=== PATIENT | female | born 1995 | race African-American/Black ===

== ENCOUNTER 2017-07-09 15:26 | Emergency (ER) | payer MEDICAID ==
[~2017-07-09] VITALS: Ht 170.2 cm; Wt 83.0 kg
[2017-07-09 15:40] VITALS: BP 124/84
--- NOTE | 2017-07-09 16:30 | Emergency Room Report ---
History of Present Illness General Chief Complaint: Behavioral Complaint Source: Patient (GERONIMO RAZO) Present Illness HPI 21 y/o female BIB friend c/o intent to hurt herself x 2 days. States that she has a hx of cutting since she was 15 y/o with hx of abuse and recent methamphetamine use 2 days ago. States she does not want to talk about her issue but states she had gotten to an argument with her boyfriend and then started cutting on herself this morning but then 2 hours prior to arrival began cutting her lower wrist with a razor with the intent to kill herself. States that she called her friend who brought her here to the hospital for evaluation. Patient states she feels depressed and has little interest in doing things, insomnia, poor appetite, feels bad about herself / thinks she is a failure and has been restless and irritable. Patient admits to having both auditory and visual hallucinations. Denies homicidal ideations. (GERONIMO RAZO) Allergies: Coded Allergies: No Known Allergies (Unverified , 07/09/17) Patient History Past Medical History: see triage record Past Surgical History: none Pertinent Family History: none Last Menstrual Period: 05/08/17 Now: No Immunizations: UTD Reviewed Nursing Documentation: PMH: Agreed, PSxH: Agreed (GERONIMO RAZO) Nursing Documentation-PMH Past Medical History: No History, Except For Hx Cardiac Problems: No Hx Hypertension: No Hx Pacemaker: No Hx Asthma: No Hx COPD: No Hx Diabetes: No Hx Cancer: No Hx Gastrointestinal Problems: No Hx Dialysis: No History Of Psychiatric Problem: Yes - Anxiety, Depression, Schizophrenia Hx Neurological Problems: No Hx Cerebrovascular Accident: No Hx Seizures: Yes (GERONIMO RAZO) Review of Systems All Other Systems: negative except mentioned in HPI (GERONIMO RAZO) Physical Exam Vital Signs Date Time Temp Pulse Resp B/P (MAP) Pulse Ox O2 Delivery O2 Flow Rate FiO2 07/09/17 15:29 98.1 100 16 126/83 100 Room Air Sp02 EP Interpretation: reviewed, normal General Appearance: no apparent distress, alert, GCS 15, non-toxic Head: normocephalic, atraumatic Eyes: bilateral eye normal inspection, bilateral eye PERRL ENT: hearing grossly normal, normal pharynx, no angioedema, normal voice Neck: full range of motion, supple/symm/no masses Respiratory: chest non-tender, lungs clear, normal breath sounds, speaking full sentences Cardiovascular #1: regular rate, rhythm, no edema Musculoskeletal: gait/station normal, normal range of motion Neurologic: alert, oriented x3, responsive, motor strength/tone normal, sensory intact, speech normal Psychiatric: judgement/insight normal, memory normal, no delusions, depressed affect, other - PHQ - 19, Very Difficult to do work, take care of things at home or get along with people. Skin: normal color, no rash, warm/dry, well hydrated, laceration - multipe 3cm superficial lacerations on right forarm and wrist. keloids on left arm from old cutting wounds. Lymphatic: no adenopathy (GERONIMO RAZO) Medical Decision Making PA Attestation Dr. Mccarthy is my supervising physician with whom patient management has been discussed with. (GERONIMO RAZO) Diagnostic Impression: Primary Impression: Behavioral disorder Additional Impression: Substance abuse ER Course Pt. presents to the ED c/o "cutting" Ddx considered but are not limited to schizophrenia, drug abuse, depression, suicide attempt, borderline personality, bipolar, tumor, CVA, meningitis Vital signs: are WNL, pt. is afebrile H&PE are most consistent with Major depression with drug abuse ORDERS / ED INTERVENTIONS: My Orders - GERONIMO RAZO Procedure Category Date Status Time Vital Signs CARE 07/09/17 Transmitted 16:14 Iv Access / Saline CARE 07/09/17 Transmitted Lock 16:14 Acetaminophen Level LAB 07/09/17 Logged 16:14 Alcohol Blood/Serum LAB 07/09/17 Logged 16:14 Cbc W/ Differential LAB 07/09/17 Logged 16:14 CMP LAB 07/09/17 Logged 16:14 Drug Screen Urine LAB 07/09/17 Logged 16:14 Salicylates Level LAB 07/09/17 Logged 16:14 Thyroid Stimulating LAB 07/09/17 Logged Hormone 16:14 Urine Screen LAB 07/09/17 Logged 16:14 Saline 10ml Flush PHA 07/09/17 In Process (Saline 10ml Flush) 16:15 At this time pt. is stable and is medically clear. Patient is pending evaluation by psych. I have transferred care and given report to Dr. Mccarthy who has taken over care at the end of my shift. (GERONIMO RAZO) ER Course Please see the above reports. Patient history reviewed and patient examined. The patient is examined by me in the morning. She denies any pain. She also denies any medication at this time. We'll be reevaluating her to see if she needs to be placed at this time. [facility]. (Scooby Merida M.D.) Last Vital Signs Date Time Temp Pulse Resp B/P (MAP) Pulse Ox O2 Delivery O2 Flow Rate FiO2 07/09/17 18:40 98.2 99 12 117/74 98 Room Air Status: improved (GERONIMO RAZO) Last Vital Signs Date Time Temp Pulse Resp B/P (MAP) Pulse Ox O2 Delivery O2 Flow Rate FiO2 07/10/17 11:30 63 18 106/76 98 Room Air 07/10/17 11:30 97.4 Status: improved (Scooby Merida M.D.) Disposition: XFER SHT-TRM HOSP Condition: Serious - but stable for transfer Referrals: NOT CHOSEN IPA/,REFERRING (PCP) GERONIMO RAZO Jul 09, 2017 16:30 Scooby Merida M.D. Jul 10, 2017 07:10
[2017-07-09 17:04] LABS: BASOPHILS % (AUTO) 2.4 % (0.0-2.0); EOSINOPHILS % (AUTO) 2.7 % (0.0-3.0); LYMPHOCYTES % (AUTO) 41.5 % (20.0-45.0); MEAN CORPUSCULAR HEMOGLOBIN 21.2 PG (27.0-31.0); MEAN CORPUSCULAR HGB CONC 29.3 G/DL (32.0-36.0); MEAN CORPUSCULAR VOLUME 72 FL (80-99); MONOCYTES % (AUTO) 8.1 % (1.0-10.0); NEUTROPHILS % (AUTO) 45.2 % (45.0-75.0); PLATELET COUNT 234 K/UL (150-450); RED CELL DISTRIBUTION WIDTH 15.6 % (11.6-14.8); WHITE BLOOD COUNT 4.8 K/UL (4.8-10.8)
[2017-07-09 17:20] LABS: ACETAMINOPHEN < 10 ug/mL (10-30); ALANINE AMINOTRANSFERASE 7 U/L (3-33); ALBUMIN/GLOBULIN RATIO 1.3 (1.0-2.7); ALCOHOL < 10 mg/dL; ANION GAP 12 (5-15); ASPARTATE AMINO TRANSFERASE 11 U/L (5-40); CALCIUM 9.3 mg/dL (8.6-10.2); CARBON DIOXIDE 26 mEQ/L (20-30); CHLORIDE 103 mEQ/L (98-107); CREATININE 0.7 mg/dL (0.5-0.9); GLOMERULAR FILTRATION RATE > 60 mL/min (>60); HEMOLYSIS 1; POTASSIUM 3.9 mEQ/L (3.4-4.9); SODIUM 141 mEQ/L (135-145); TOTAL PROTEIN 6.9 g/dL (6.6-8.7)
[2017-07-09 17:30] LABS: THYROID STIMULATING HORMONE 0.509 uIU/mL (0.300-4.500)
[2017-07-09 18:40] VITALS: BP 117/74
[2017-07-10 01:03] VITALS: BP 116/71
[2017-07-10 05:30] VITALS: BP 117/75
[2017-07-10 11:30] VITALS: BP 106/76
== END 2017-07-10 11:30 ==
LOC: EMR 16:07
DX: F91.9 Conduct disorder, unspecified (principal); F15.10 Other stimulant abuse, uncomplicated; F41.9 Anxiety disorder, unspecified; F20.9 Schizophrenia, unspecified; F32.9 Major depressive disorder, single episode, unspecified
CPT/HCPCS: 36415; 80053; 80300; 80329; 81025; 84443; 85025; 99285